=== PATIENT | female | born 1990 | race Caucasian/White ===

== ENCOUNTER 2018-09-21 09:48 | Observation (INO) | payer OTHER ==
[~2018-09-21] VITALS: Ht 170.2 cm; Wt 63.1 kg
--- OUTSIDE RECORDS SUMMARY | 2018-09-21 11:26 | XMS ---
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 - 2 Visits in 30 Days CARE PROVIDERS Barbara Rubio Nurse Practitioner 09/21/2018-Current PHONE: [phone] TIFFANIE GOODMAN Primary [facility] [employer] PHONE: Unknown Jesus has no Care Guidelines for this patient. [employer] VISIT COUNT (12 MO.) [facility] [employer] [address] TOTAL 3 NOTE: Visits indicate total known visits. ED/UCC VISIT TRACKING (12 MO.) 09/21/2018 09:50 [facility] [place] TYPE: Emergency COMPLAINT: - ABNORMAL LABS 09/16/2018 13:36 [email or web address] TYPE: Emergency DIAGNOSES: - F/U LAB WORK - Hypokalemia 09[facility]15/2018 13:14 [facility] DIAGNOSES: - Abnormal levels of other serum enzymes - Hypokalemia - Nausea - VOMITING X 3WEEKS [employer]ST[employer] INPATIENT VISIT TRACKING (12 MO.) No inpatient visits to display in this time frame [email or web address]
--- NOTE | 2018-09-21 17:48 | NUR ---
PATIENT HAS NO C/O PAIN AT THIS TIME, ORDERED DINNER AND RN STARTING NEWIV DUE TO OTHER IV OCCLUDING WHEN SHE MOVES HER ARM
--- NOTE | 2018-09-21 19:05 | NUR ---
SHIFT REPORT RECEIVED. PATIENT SITTING UP IN BED EATING. FAMILY IN ROOM. DENIES ANY NEEDS. CALL LIGHT IN REACH.
--- NOTE | 2018-09-21 20:45 | NUR ---
PATIENT SITTING UP IN BED WATCHING TV. CIWA SCORE 6. DISCUSSED RISK AND S/S OF ETOH WITHDRAWL. PATIENT VERBILIZED UNDERSTANDING. VITALS WNL. PATIENT HAS MILD HEADACHE BUT DENIES NEED FOR TYLENOL. SOUP AND CRACKERS PROVIDED. IV FLUIDS INFUSING, URINE OUTPUT QS. PATIENT HAS BEEN AMBULATING INDEPENDENTLY TO THE BATHROOM AND APPEARS STEADY ON HER FEET. NO OTHER NEEDS AT THIS TIME. CALL LIGHT IN REACH.
--- NOTE | 2018-09-22 00:10 | NUR ---
PATIENT AWAKE SITTING UP BED WATCHING TV. STATED "I JUST WOKE UP" WHEN RN ENTERED THE ROOM. DISCUSSED THE SHCEDULED ATIVAN AND PATIENT AGREES TO TAKE THE SCHEDULE "WHILE AWAKE" DOSE SHE PLANS TO STAY UP FOR A WHILE. CIWA SCORE REMAINS 6. PATIENT COMPLAINS OF MILD HEADACHE, NIO TYLENOL ORDERED. PATIENT ALSO PROVIDED WITH MORE SOUP, CRACKERS, AND ICE WATER. IV FLUIDS INFUSING PER ORDER, URINE OUTPUT HAS INCREASED. PATIENT DENIES OTHER NEEDS. CALL LIGHT IN REACH.
--- NOTE | 2018-09-22 01:00 | NUR ---
PRN TYLENOL PROVIDED FOR 5/10 HEADACHE. PATIENT'S HANDS APPEAR TO SHAKE WITH ANY FINE MOTOR MOVEMENTS. SHE IS ABLE TO USE HER CELLPHONE BUT HANDS TREMBLE SHE ATTEMPTS TO HOLD THE PILL CUP. PATIENT FEELS THAT HER TREMBLE HAS GOTTEN SLIGHTLY WORSE. FRESH GOWN PROVIDED DUE TO FOOD SPILL. PATIENT DENIES OTHER NEEDS.
--- NOTE | 2018-09-22 01:07 | NUR ---
VITALS AND I&OS DONE AND CHARTED. FRESH ICE GIVEN. GARBAGE CLEARED FROM HER BEDSIDE TABLE. PT NEEDS NOTHING MORE AT THIS TIME. INFORMED RN FATIMAH OF HEART RATE 112
--- NOTE | 2018-09-22 03:00 | NUR ---
PATIENT APPEARS TO BE SLEEPING, RR 18. IV FLUIDS PER ORDER, SITE WNL.
--- NOTE | 2018-09-22 04:30 | NUR ---
PATIENT UP TO THE BATHROOM INDEPENDENTLY. CALLED FOR NURSE. PATIENT REPORTS INCREASED HEADACHE, 6/10. SHE IS VISIBLY DIAPHORETIC AND PILLOW CASE REQUIRED CHANGING DUE TO SWEAT. PATIENT IS AFEBIRL BUT SHAKING AND FEELS COLD. WARM BLANKET PROVIDED. PATIENT ALSO REPORTS SOME TINGLING/ITCHING IN HER FEET AND IS RUBBING HER FEET ON THE SHEETS TO RELIEVE THIS SENSATION. PATIENT IS WITHDRAWN BUT APPEARS ANXIOUS AND IS REQUESTING ATIVAN. SCHEDULE PO DOSE PROVIDED TO HER. CIWA HAS INCREASED FROM 6 TO 10, WILL REPEAT ASSESSMENT AND VS IN 1 HOUR PER PROTOCOL. PATIENT RESTING IN BED.
--- NOTE | 2018-09-22 06:15 | NUR ---
PRN ATIVAN GIVEN FOR CIWA GREATER THAN 8, CIWA 10 AT THIS TIME. PATIENT RESTING IN BED, DENIES ANY NEEDS. EXPLAINED MEDICATION ADMINISTRATION, PATIENT VERBILIZED UNDERSTANDING.
--- NOTE | 2018-09-22 06:53 | NUR ---
PATIENT SLEPT ON AND OFF THROUGHOUT THE SHIFT. INDEPENDENT TO THE BATHROOM. URINE OUTPUT LARGELY QS. IV FLUIDS PER ORDER. SCHEDULED ATIVAN PER ORDER. PRN ATIVAN X1 FOR CIWA GREATER THAN 8. CIWA = 10 FOR LAST TWO HOURS. PATIENT HAS A HEADACHE UNCHANGED BY REST OR TYLENOL. INCREASED DIAPHORESIS THROUGHOUT THE SHIFT. MILD TECTILE DISTURBANCES. AND ANXIETY UNCHANGED BY PO ATIVAN. PATIENT IS PLESANT AND AGREEABLE TO CARE.
--- NOTE | 2018-09-22 06:57 | NUR ---
PATIENT APPEARS TO BE SLEEPING SOUNDLY. RR 18. CALL LIGHT IN REACH.
--- NOTE | 2018-09-22 07:55 | NUR ---
REPORT RECEIVED FROM JAVIER SHERIDAN. PT RESTING SUPINE IN BED READING BREAKFAST MENUE, SLIGHT TREMORS NOTED. PT DENIES NEEDS. CALL LIGHT AND H20 IN RECH.
--- NOTE | 2018-09-22 08:32 | NUR ---
PT RESTING SUPINE IN BED, EYES CLOSED AND RESPIRATIONS EVEN AND UNLABORED. CPOX PLACED ON PATIENT. PT ALERT TO VOICE AND AM MEDS ADMINISTERED. ASSESSMENT COMPLETED. CALL LIGHT AND H20 IN REACH. NO NEEDS VOICED AND PT NOW RESTING SUPINE EYES CLOSED AND APPEARS TO BE RESTING COMFORTABLY.
--- NOTE | 2018-09-22 09:08 | NUR ---
SET HER UP FOR A SHOWER. SHE SET UP IN THE CHAIR AND ATE SOME OF HER BREAKFAST WHILE I MADE HER BED.
[2018-09-22] MEDS ORDERED: DAILY MULTIPLE1 EACH PO (10:52)
--- NOTE | 2018-09-22 10:52 | NUR ---
MED REC COMPLETE
--- NOTE | 2018-09-22 11:49 | NUR ---
PT IN BED, VERY QUIET VOICE, GAVE THE APPEARANCE THAT SHE WAS NOT INTERESTED IN ENGAGING IN A VISIT. PT POLITE, GAVE A BLESSING, WILL FOLLOW NEEDED
--- NOTE | 2018-09-22 11:53 | NUR ---
PT RESTING SUPINE IN BED STATES "I'M FEELING BETTER DO YOU THINK I'LL BE CLEARED TO GO HOME TODAY?" PT INFORMED THAT WE ARE STILL MONITORING HER FOR ETOH WITHDRAWAL BUT THAT THE MD WILL MAKE THE DETERMINATION TO HER LENGTH OF STAY. CALL LIGHT AND H20 IN REACH. NEW LITER OF LR HUNG AND IV MAINTENANCE FLUIDS INFUSING ORDERED.
--- NOTE | 2018-09-22 14:20 | NUR ---
Pt resting supine in bed texting on cell phone. Speech clear and pt is a/o x4. Pt states mild headache is still present and tolerable. Mild tingling and burning is still present in feet. Very slight trembling noted during assessment. pt denies nausea and is not visably diaphoretic. Pt denies needs at this time. IV potassium continues to infuse to left FA. Call light and h20 in reach.
--- NOTE | 2018-09-22 15:16 | EKG ---
[facility] [address] [place], [place] [address] Signed Sinus tachycardia Otherwise normal ECG No previous ECGs available Confirmed by DARLENE DEVI DO ([id number]) on 09/22/2018 3:16:17 PM Electronically Signed By: DARLENE DEVI DO 09/22/18 1516 PATIENT NAME: JANEL GIORDANO Electrocardiogram DATE OF : 86 PHYSICIAN: DARLENE DEVI DO REPORT #: [id number] REPORT IS CONFIDENTIAL AND NOT TO BE RELEASED WITHOUT AUTHORIZATION
--- NOTE | 2018-09-22 16:18 | NUR ---
PT SITTING UP IN BED EATING A SNACK. PT UP TO RESTROOM AMBULATES INDEPENDENTLY IN ROOM AND DENIES DIZZINESS. FAMILY AT BEDSIDE. FRESH ICE WATER PROVIDED AT BEDSIDE PER PT REQUEST.
--- NOTE | 2018-09-22 20:00 | NUR ---
PATIENT IN BED WATCHING TV. MULTIPLE FRIENDS AND FAMILY VISITING WITH PATIENT AT THIS TIME. HAVE RECEIVED REPORT FROM DAY SHIFT RN. NO NEEDS AT THIS TIME.
--- NOTE | 2018-09-22 21:51 | NUR ---
VITALS AND I&OS DONE AND CHARTED. PT NEEDS NOTHING AT THIS TIME. BEDSIDE TABLE AND CALL LIGHT IN REACH.
--- NOTE | 2018-09-22 22:00 | NUR ---
PATIENT MEDICATED WITH TYLENOL FOR 5/10 HEADACHE AND HER OTHER PM MEDS. PATIENT IS GOING TO TRY AND GET SOME SLEEP NOW. ALL VISITORS HAVE GONE HOME.
--- NOTE | 2018-09-22 23:13 | NUR ---
PATIENT RESTING QUIETLY ON HER LEFT SIDE. EYES CLOSED. RESPIRATIONS EVEN AND REGULAR. NO TREMOR NOTED AND PATIENT HAS BEEN ALERT AND ORIENTED.
--- NOTE | 2018-09-22 23:52 | NUR ---
PATIENT CONTINUES TO REST QUIETLY ON HER LEFT SIDE, EYES CLOSED RESPIRATIONS EVEN AND REGULAR AT A RATE OF 16PBM. NO S/S OF DISTRESS.
--- NOTE | 2018-09-23 03:15 | NUR ---
PATIENT HAS BEEN RESTING QUIETLY, UNTIL ASSESSMENT, NO CHANGE IN PREVIOUS ASSESSMENT, NO MORE C/O PAIN OR NAUSEA, NO TREMORS NOTED.
--- NOTE | 2018-09-23 04:05 | NUR ---
FRESH ICE WATER AND TOMATO SOUP GIVEN PER PT REQUEST. BEDSIDE TABLE AND CALL LIGHT IN REACH. PT NEEDS NOTHING MORE AT THIS TIME.
--- NOTE | 2018-09-23 06:35 | NUR ---
VITALS AND I&OS DONE AND CHARTED. BEDSIDE TABLE AND CALL MARIJAH CHANDA SPARKS. PT NEEDS NOTHING MORE AT THIS TIME.
--- NOTE | 2018-09-23 07:29 | NUR ---
REPORT GIVEN TO JAVIER TEJADA. NO MORE NAUSEA OR HEADACHE/PAIN SINCE MEDS GIVEN AT BEGINING PART OF THE SHIFT. PATIENT HAS NOT HAD A GREAT APPITITE, BUT HAS REQUESTED A LOT OF PO FLUIDS. O2 SATS IN THE HIGH 90'S MOST OF THE NIGHT AND VS HAVE BEEN STABLE. PATIENT REST MOST OF THE NIGHT EYES CLOSED, RESPIRATIONS EVEN AND REGULAR, NO S/S OF DISTRESS.
--- NOTE | 2018-09-23 07:31 | NUR ---
RECEIVED BEDSIDE REPORT FROM JAVIER YOUNG. PT SLEEPING SOUNDLY, BREATHING EVEN AND UNLABORED. NO TREMORS, NO HALUCIANTIONS, HEADACHE AND NAUSEA RESOLVED. IV SALINE LOCKED.
--- NOTE | 2018-09-23 11:12 | NUR ---
PATIENT HAS BEEN VISITED BY [facility]. A PLAN WAS MADE FOR FOLLOW UP.
--- NOTE | 2018-09-23 11:45 | NUR ---
PT SLEEPING SOUNDLY, HAD TO SHAKE SHOULDER TO WAKE HER TO ADMINISTER K-RIDER. PT FELL BACK ASLEEP QUICKLY.
--- NOTE | 2018-09-23 12:00 | NUR ---
PT SITTING UP IN BED EATING LUNCH. CALLED RN IN DUE TO ALARM FROM PULSE OX. RN EXPLAINED THAT MOVEMENT WILL CAUSE ELEVATED READINGS. PULSE WAS WITHIN NORMAL ONCE EXTRA MOVEMENT STOPPED. PT REPORTED FEELING MUCH BETTER, DISCHARGE ORDER IN PLACE, WAITING FOR K-RIDER TO FINISH.
[2018-09-23] MEDS ORDERED: VITAMIN B-1100 MG PO (12:03)
[2018-09-23] MEDS ORDERED: ZOFRAN4 MG PO (12:06)
[2018-09-23] MEDS ORDERED: PROMETHAZINE12.5 M1 PO (12:07)
[2018-09-23] MEDS ORDERED: POTASSIUM CHLO20 ME1 PO (12:07)
[2018-09-23] MEDS ORDERED: CHLORDIAZEPOXID25 MG PO (12:10)
--- NOTE | 2018-09-23 18:46 | NUR ---
PT RESTED MOST OF THE DAY. DISCHARGE TEACHING COMPLETE. DISCUSSED MEDICATIONS, SIDE EFFECTS, WHEN TO TAKE, WHEN TO FOLLOW UP, AND WITHDRAWAL. PT VERBALZIED UNDERSTANDING, WRITTEN INSTRUCTIONS GIVEN. MONITOR SHOWED HR OF 122, MANUAL HR OF 80. TEMP MEASURED AT 100.6, HOWEVER PT WAS BUNDLED UP AND HAD STOCKING CAP ON. PT TAKEN OUT BY WHEELCHAIR WITH NURSING STAFF.
[2018-10-05] MEDS ORDERED: ALDACTONE25 MG PO (18:05)
[2018-10-05] MEDS ORDERED: FUROSEMIDE20 MG PO (18:05)
[2018-10-05] MEDS ORDERED: K-TAB ER20 MEQ PO (18:05)
[2018-10-05] MEDS ORDERED: ENULOSE10 GM/15 M PO (18:05)
== END 2018-09-23 18:23 | disposition home or self-care (01) ==
LOC: ED 09:48 → MS 09:51
PROVIDERS: ADMIT Student in an Organized Health Care Education/Training Program
DX: E87.6 Hypokalemia (principal); F10.239 Alcohol dependence with withdrawal, unspecified; E83.42 Hypomagnesemia; E83.39 Other disorders of phosphorus metabolism; F17.200 Nicotine dependence, unspecified, uncomplicated; K70.10 Alcoholic hepatitis without ascites; K29.70 Gastritis, unspecified, without bleeding
CPT/HCPCS: 36415; 80048; 80053; 80076; 81001; 82140; 82977; 83615; 83690; 83735; 84100; 84703; 85025; 85610; 85730; 93005; 93010; 96361; 96365; 96366; 96368; 96375; 96376; 99285-25; C9113; G0378; G0480; J2060; J2405; J2550; J3475; J3480; J7030; J7060; J7120

== ENCOUNTER 2018-11-19 14:14 | Emergency (ER) | payer SELFPAY ==
[~2018-11-19] VITALS: Ht 170.2 cm; Wt 63.1 kg
[~2018-11-19 14:14] MED LIST: ALDACTONE25 MG PO; CHLORDIAZEPOXID25 MG PO; DAILY MULTIPLE1 EACH PO; ENULOSE10 GM/15 M PO; FUROSEMIDE20 MG PO; K-TAB ER20 MEQ PO; POTASSIUM CHLO20 ME1 PO; PROMETHAZINE12.5 M1 PO; VITAMIN B-1100 MG PO; ZOFRAN4 MG PO
[2018-11-19] MEDS ORDERED: CONSTULOSE10 GM/15 M PO (17:00)
== END 2018-11-19 17:15 | disposition home or self-care (01) ==
LOC: ED 14:14
DX: F10.129 Alcohol abuse with intoxication, unspecified (principal); K72.90 Hepatic failure, unspecified without coma; Y90.8 Blood alcohol level of 240 mg/100 ml or more; F17.200 Nicotine dependence, unspecified, uncomplicated; Z79.899 Other long term (current) drug therapy
CPT/HCPCS: 36415; 80053; 81001; 82140; 85025; 87502; 99283; G0480